=== PATIENT | male | born 1965 | race Asian ===

== ENCOUNTER 2017-02-22 13:03 | Emergency (ER) | payer OTHER ==
[2017-02-22 13:16] VITALS: BP 150/95; PULSE 100; TEMP 98.1; BMI 29.8
[2017-02-22] MEDS ORDERED: ACETAMINOPHEN 325 MG TABLET (FP) PO ONE (13:34)
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
[2017-02-22] MEDS ORDERED: ACETAMINOPHEN 325 MG TABLET (FP) ONE (13:51)
== END 2017-02-22 14:26 | disposition home or self-care (01) ==
LOC: FER 13:03
DX: S09.90XA Unspecified injury of head, initial encounter (principal); Y04.2XXA Assault by strike against or bumped into by another person, initial encounter; Y93.89 Activity, other specified; Y92.219 Unspecified school as the place of occurrence of the external cause; Y99.0 Civilian activity done for income or pay
CPT/HCPCS: 70450-TC; 99281-25

== ENCOUNTER 2020-06-29 11:23 | Inpatient (IN) | payer BC, OTHER ==
[2020-06-29] MEDS ORDERED: ASPIRIN 81 MG CHEWABLE TABLETS PO ONE (11:40)
[2020-06-29] MEDS ORDERED: SODIUM CHLORIDE 0.9% 500 ML INFUS.BAG IV ONE ×2 (11:44→14:49)
[2020-06-29] MEDS ORDERED: ASPIRIN 325 MG TABLET ONE (12:22)
[2020-06-29] MEDS ORDERED: ASPIRIN 81 MG CHEWABLE TABLETS ONE (12:23)
[2020-06-29 12:45] LABS: ALBUMIN 4.3 g/dl (3.4-5.0); BILIRUBIN,TOTAL 0.6 mg/dl (0.2-1); CALCIUM 9.3 mg/dl (8.5-10); CREATININE 0.9 mg/dl (0.55-1.3); POTASSIUM 3.8 mmol/L (3.5-5.1); TOT PROT 7.1 g/dl (6.4-8.2)
[2020-06-29 12:46] LABS: ACTIVATED PTT 23.4 SECONDS (25.2-36.5)
[2020-06-29 12:51] LABS: INR 1.08 (0.82-1.09)
[2020-06-29 13:04] LABS: BASO % 0.9 % (0-2.0); EOS % 1.3 % (0-4.5); HEMATOCRIT 49.2 % (35.4-49); HEMOGLOBIN 16.4 GM/dL (11.7-16.9); LYMPH % 17.2 % (8-40); MCH 29.8 pg (25.7-33.7); MCHC 33.3 g/dl (32.0-35.9); MEAN CELL VOLUME 89.7 fl (80-96); MEAN PLT VOLUME 10.1 fl (7.5-11.1); MONO % 7.9 % (3.8-10.2); NEUT % 72.7 % (42.8-82.8); PLATELET COUNT 220 K/MM3 (134-434); RBC 5.48 M/mm3 (4.00-5.60); RDW 13.1 % (11.9-15.9); WHITE BLOOD COUNT 9.4 K/mm3 (4.0-10.0)
[2020-06-29] MEDS ORDERED: IBUPROFEN 600 MG TABLET (FP) PO ONE (14:49)
[2020-06-29] MEDS ORDERED: ACETAMINOPHEN 500 MG TABLET (FP) PO ONE (14:54)
[2020-06-29] MEDS ORDERED: CYCLOBENZAPRINE HCL 10 MG TABLET (FP) PO ONE (14:54)
[2020-06-29] MEDS ORDERED: ACETAMINOPHEN 325 MG TABLET (FP) ONE (16:02)
[2020-06-29] MEDS ORDERED: CYCLOBENZAPRINE HCL 10 MG TABLET (FP) ONE (16:02)
[2020-06-29] MEDS ORDERED: LISINOPRIL 10 MG TABLET PO ONE (17:01)
[2020-06-29 17:29] VITALS: BMI 29.7
[2020-06-29 17:51] LABS: COCAINE, UR NEGATIVE ng/ml (CUTOFF=300); OPIATES, URI NEGATIVE ng/ml (CUTOFF=300); URINE BARBITURATES NEGATIVE ng/ml (CUTOFF=200); URINE BENZODIAZEPINES NEGATIVE ng/ml (CUTOFF=200)
[2020-06-29 17:52] LABS: METHADONE, UR NEGATIVE ng/ml (CUTOFF=300); PHENCYCLIDINE,URINE NEGATIVE ng/ml (CUTOFF=25)
[2020-06-29 17:53] LABS: URINE AMPHETAMINES NEGATIVE ng/ml (CUTOFF=500)
[2020-06-29] MEDS: INSULIN SLIDING SCALE (NOVOLOG) 1 VIAL SQ SCH (18:07)
[2020-06-30] MEDS: INSULIN SLIDING SCALE (NOVOLOG) 1 VIAL SQ SCH ×3 (06:04→12:41)
[2020-06-30 08:22] LABS: BASO % 0.6 % (0-2.0); EOS % 1.1 % (0-4.5); HEMATOCRIT 48.3 % (35.4-49); HEMOGLOBIN 16.3 GM/dl (11.7-16.9); LYMPH % 25.1 % (8-40); MCHC 33.8 g/dl (32.0-35.9); MEAN CELL VOLUME 91.4 fl (80-96); MEAN PLT VOLUME 10.1 fl (7.5-11.1); MONO % 8.1 % (3.8-10.2); NEUT % 65.1 % (42.8-82.8); PLATELET COUNT 215 K/MM3 (134-434); RBC 5.28 M/mm3 (4.00-5.60)
[2020-06-30 08:30] LABS: ALBUMIN 3.9 g/dl (3.4-5.0); BILIRUBIN,TOTAL 0.9 mg/dl (0.2-1); MAGNESIUM 2.1 mg/dL (1.8-2.4); PHOSPHOROUS 3.2 mg/dl (2.5-4.9); TOT PROT 6.6 g/dl (6.4-8.2)
[2020-06-30 09:25] LABS: N-TERMINAL BNP 34.5 pg/ml (5-125)
[2020-06-30] MEDS ORDERED: ASPIRIN COATED 81 MG TABLET.EC PO SCH (10:00)
[2020-06-30] MEDS ORDERED: ENOXAPARIN NA (PORCINE) 40 MG/0.4 ML DISP.SYRIN SQ SCH (10:00)
[2020-06-30] MEDS ORDERED: LISINOPRIL 10 MG TABLET PO SCH (13:45)
[2020-06-30 14:40] VITALS: BP 131/86; PULSE 90; TEMP 98.6
== END 2020-06-30 15:30 | disposition home or self-care (01) | DRG 204 ==
LOC: FER 11:23 → FM/S 16:47
PROVIDERS: ADMIT Internal Medicine; ATTEND Nurse Practitioner Acute Care
DX: R55 Syncope and collapse (principal); E11.9 Type 2 diabetes mellitus without complications; R00.0 Tachycardia, unspecified; I10 Essential (primary) hypertension; M54.2 Cervicalgia; M25.512 Pain in left shoulder
CPT/HCPCS: 36415; 70450-TC; 71045-TC-FY; 71275-TC; 72125-TC; 73030-TC-LT-FY; 80053; 80307; 81003; 82550; 82553; 82728; 82962; 83615; 83735; 83880; 84100; 84443; 84484; 85025; 85610; 85730; 87086; 93005; 93306-TC; 93880-TC; 99285-25; C9803; Q9967; U0003

== ENCOUNTER 2020-07-06 13:34 | Emergency (ER) | payer BC ==
[2020-07-06 13:59] VITALS: BMI 29.7
[2020-07-06 16:24] LABS: BASO % 0.6 % (0-2.0); EOS % 0.8 % (0-4.5); HEMATOCRIT 51.7 % (35.4-49); HEMOGLOBIN 17.6 GM/dL (11.7-16.9); LYMPH % 16.7 % (8-40); MCH 30.9 pg (25.7-33.7); MCHC 34.1 g/dl (32.0-35.9); MEAN CELL VOLUME 90.7 fl (80-96); MONO % 8.4 % (3.8-10.2); NEUT % 73.5 % (42.8-82.8); PLATELET COUNT 261 K/MM3 (134-434); RDW 13.2 % (11.9-15.9); WHITE BLOOD COUNT 14.8 K/mm3 (4.0-10.0)
[2020-07-06] MEDS ORDERED: SODIUM CHLORIDE 1,000 ML IV STA (16:45)
[2020-07-06 17:02] LABS: CHLORIDE 100 mmol/L (98-107); POTASSIUM 3.9 mmol/L (3.5-5.1); SODIUM 136 mmol/L (136-145)
[2020-07-06 17:04] LABS: CALCIUM 8.9 mg/dL (8.5-10.1)
[2020-07-06 17:05] LABS: ALBUMIN 3.9 g/dl (3.4-5.0); ANION GAP 13 MMOL/L (8-16); BLOOD UREA NITROGEN 15.6 mg/dL (7-18); CO2 23 mmol/L (21-32); GLUCOSE,RANDOM 90 mg/dL (74-106)
[2020-07-06 17:08] LABS: CREATININE 0.9 mg/dL (0.55-1.3); SGOT/AST 25 U/L (15-37); SGPT/ALT 36 U/L (13-61)
[2020-07-06 17:09] LABS: BILIRUBIN,TOTAL 0.4 mg/dL (0.2-1); TOT PROT 7.5 g/dl (6.4-8.2)
[2020-07-06 17:11] LABS: ALK PHOS 95 U/L (45-117)
[2020-07-06 17:20] VITALS: TEMP 98.4
[2020-07-06 17:21] VITALS: BP 140/72
[2020-07-06 17:53] VITALS: PULSE 99
== END 2020-07-06 18:54 | disposition home or self-care (01) ==
LOC: JER 13:34
PROC: 3E0337Z Introduction of Electrolytic and Water Balance Substance into Peripheral Vein, Percutaneous Approach (ICD-10-PCS; principal; 2020-07-06)
DX: R00.2 Palpitations (principal); I10 Essential (primary) hypertension
CPT/HCPCS: 36415; 71045-TC-FY; 80053; 84443; 84484; 85025; 85379; 93005; 93010; 99285-25

== ENCOUNTER 2020-10-15 13:59 | Emergency (ER) | payer BC ==
[2020-10-15 14:05] VITALS: TEMP 99.5; BMI 28.0
[2020-10-15] MEDS ORDERED: LORazepam 2 MG/ML SDV VIAL IVPUSH ONE (14:15)
[2020-10-15] MEDS ORDERED: LORazepam 2 MG/ML SDV VIAL ONE (14:18)
[2020-10-15 14:21] LABS: BASO % 0.7 % (0-2.0); EOS % 0.8 % (0-4.5); HEMATOCRIT 46.8 % (35.4-49); HEMOGLOBIN 16.5 GM/dl (11.7-16.9); LYMPH % 20.2 % (8-40); MCH 32.1 pg (25.7-33.7); MCHC 35.2 g/dl (32.0-35.9); MEAN CELL VOLUME 91.1 fl (80-96); MEAN PLT VOLUME 9.8 fl (7.5-11.1); MONO % 2.6 % (3.8-10.2); NEUT % 75.7 % (42.8-82.8); PLATELET COUNT 244 K/MM3 (134-434); RBC 5.13 M/mm3 (4.00-5.60); RDW 11.9 % (11.9-15.9); WHITE BLOOD COUNT 11.3 K/mm3 (4.0-10.8)
[2020-10-15] MEDS ORDERED: SODIUM CHLORIDE 1,000 ML IV STA (14:31)
[2020-10-15 14:33] LABS: ALBUMIN 4.2 g/dl (3.4-5.0); ALK PHOS 89 U/L (45-117); ANION GAP 12 MMOL/L (8-16); BILIRUBIN,TOTAL 0.5 mg/dl (0.2-1); CALCIUM 9.2 mg/dl (8.5-10); CHLORIDE 100 mmol/L (98-107); CO2 21 mmol/L (21-32); CREATININE 0.9 mg/dl (0.55-1.3); GLUCOSE,RANDOM 169 mg/dl (74-106); MAGNESIUM 1.7 mg/dL (1.8-2.4); PHOSPHOROUS 2.3 mg/dl (2.5-4.9); POTASSIUM 3.3 mmol/L (3.5-5.1); SGOT/AST 29 U/L (15-37); SGPT/ALT 30 U/L (13-61); SODIUM 133 mmol/L (136-145); TOT PROT 7.2 g/dl (6.4-8.2)
[2020-10-15 15:49] LABS: LIPASE 121 U/L (73-393)
[2020-10-15 16:29] VITALS: BP 120/86; PULSE 101
== END 2020-10-15 17:04 | disposition home or self-care (01) ==
LOC: FER 13:59
PROC: 3E033NZ Introduction of Analgesics, Hypnotics, Sedatives into Peripheral Vein, Percutaneous Approach (ICD-10-PCS; principal; 2020-10-15)
PROC: 3E0337Z Introduction of Electrolytic and Water Balance Substance into Peripheral Vein, Percutaneous Approach (ICD-10-PCS; 2020-10-15)
DX: I47.1 Supraventricular tachycardia (principal)
CPT/HCPCS: 36415; 71045-TC-FY; 80053; 82550; 83690; 83735; 84100; 84443; 84484; 85025; 93005; 99285-25

== ENCOUNTER 2021-01-19 14:25 | Emergency (ER) | payer BC ==
[2021-01-19 14:29] VITALS: TEMP 97.7; BMI 29.8
[2021-01-19] MEDS ORDERED: LACTATED RINGERS SOLUTION 1000 ML INFUS.BAG IV ONE (14:45)
[2021-01-19 15:08] LABS: BASO % 0.7 % (0-2.0); EOS % 1.7 % (0-4.5); HEMATOCRIT 45.3 % (35.4-49); HEMOGLOBIN 15.6 GM/dl (11.7-16.9); LYMPH % 27.4 % (8-40); MCH 31.4 pg (25.7-33.7); MCHC 34.5 g/dl (32.0-35.9); MEAN CELL VOLUME 91.1 fl (80-96); MEAN PLT VOLUME 10.2 fl (7.5-11.1); MONO % 8.2 % (3.8-10.2); PLATELET COUNT 191 10^3/uL (134-434); RBC 4.97 M/mm3 (4.00-5.60); RDW 11.7 % (11.9-15.9); WHITE BLOOD COUNT 7.8 K/mm3 (4.0-10.8)
[2021-01-19 15:23] LABS: ALBUMIN 3.8 g/dl (3.4-5.0); ALK PHOS 77 U/L (45-117); ANION GAP 12 MMOL/L (8-16); BILIRUBIN,TOTAL 0.6 mg/dl (0.2-1); CALCIUM 8.3 mg/dl (8.5-10); CHLORIDE 101 mmol/L (98-107); CO2 18 mmol/L (21-32); CREATININE 0.9 mg/dl (0.55-1.3); GLUCOSE,RANDOM 206 mg/dl (74-106); SGOT/AST 40 U/L (15-37); SGPT/ALT 37 U/L (13-61); SODIUM 131 mmol/L (136-145); TOT PROT 6.6 g/dl (6.4-8.2)
[2021-01-19 16:44] VITALS: BP 126/76; PULSE 89
== END 2021-01-19 17:30 | disposition home or self-care (01) ==
LOC: FER 14:25
DX: R42 Dizziness and giddiness (principal)
CPT/HCPCS: 36415; 71046-TC-FY; 80053; 82550; 82553; 84439; 84443; 84484; 85025; 93005; 99285-25

== ENCOUNTER 2024-05-09 12:29 | Emergency (ER) | payer BC ==
[2024-05-09 12:50] VITALS: BMI 28.2
[2024-05-09 13:50] LABS: HEMOGLOBIN 14.9 G/dL (11.7-16.9); MCH 30.2 pg (25.7-33.7); MCHC 32.5 g/dl (32.0-35.9); MEAN CELL VOLUME 93.1 fl (80-96); MEAN PLT VOLUME 9.2 fl (7.5-11.1); PLATELET COUNT 197.9 10^3/uL (134-434); RBC 4.94 10^6/uL (4.00-5.60); RDW 13.5 % (11.9-15.9); WHITE BLOOD COUNT 6.3 10^3/uL (4.0-10.8)
[2024-05-09 14:12] LABS: ALBUMIN 4.2 g/dl (3.4-5.0); ALK PHOS 77 U/L (45-117); ANION GAP 9 mmol/L (4-13); BILIRUBIN,TOTAL 0.5 mg/dl (0.2-1); CALCIUM 8.8 mg/dl (8.5-10.1); CHLORIDE 99 mmol/L (98-107); CO2 23 mmol/L (21-32); CREATININE 0.8 mg/dl (0.6-1.3); GLUCOSE,RANDOM 133 mg/dl (74-106); POTASSIUM 3.9 mmol/L (3.5-5.1); SGOT/AST 26 U/L (15-37); SGPT/ALT 27 U/L (7-52); SODIUM 131 mmol/L (136-145); TOT PROT 6.4 g/dl (6.4-8.2)
[2024-05-09 14:18] LABS: ACTIVATED PTT 30.3 SECONDS (25.2-36.5); INR 1.01 (0.83-1.09); PROTHROMBIN TIME (PATIENT) 11.5 SEC (9.7-13.0)
[2024-05-09] MEDS: SODIUM CHLORIDE 0.9% 1000 ML INFUS.BAG IV ONE (14:46)
[2024-05-09 15:17] LABS: PLATELET ESTIMATE ADEQUATE
[2024-05-09 16:53] VITALS: BP 148/93; PULSE 99; RESP 16; TEMP 97.5
[2024-05-09 17:42] LABS: HIV INTERPRETATION NEGATIVE (NEGATIVE)
== END 2024-05-09 17:11 | disposition home or self-care (01) ==
LOC: FER 12:29
DX: I10 Essential (primary) hypertension (principal); R00.2 Palpitations; R07.2 Precordial pain; R11.0 Nausea; R53.1 Weakness; Z20.822 Contact with and (suspected) exposure to COVID-19
CPT/HCPCS: 0241U-QW; 36415; 71045-TC-FY; 80053; 81003; 84484; 85027; 85379; 85610; 85730; 86803; 87389; 93005; 99285-25